=== PATIENT | female | born 1995 | race Hispanic/Latino ===

== ENCOUNTER 2020-03-02 11:08 | Inpatient (IN) | payer BC, OTHER ==
[2020-03-02] MEDS ORDERED: Butorphanol Tartrate 1 MG/ML VIAL SLOW IVP PRN (11:42)
[2020-03-02] MEDS ORDERED: Docusate 100 MG CAP PO PRN (11:42)
[2020-03-02] MEDS ORDERED: Promethazine HCl 25 MG/ML VIAL IM PRN ×2 (11:42→21:05)
[2020-03-02] MEDS ORDERED: Diphenoxylate HCl/Atropine Tablet PO PRN ×2 (11:42)
[2020-03-02] MEDS ORDERED: HYDROcodone/Acetaminophen 5/325 mg Tablet PO PRN ×4 (11:42→21:05)
[2020-03-02] MEDS ORDERED: Acetaminophen 500 MG TAB PO PRN (11:42)
[2020-03-02] MEDS ORDERED: Ibuprofen 800 MG TAB PO PRN (11:42)
[2020-03-02] MEDS ORDERED: Lidocaine 1% (PF) 30 ML VIAL SC PRN (11:42)
[2020-03-02] MEDS ORDERED: Ondansetron PF 4 MG/2 ML Vial IVP PRN ×2 (11:42→21:05)
[2020-03-02] MEDS ORDERED: Methylergonovine 0.2 MG/ML VIAL IM PRN ×2 (11:42→21:05)
[2020-03-02] MEDS ORDERED: Carboprost 250 MCG/ML AMP IM PRN (11:42)
[2020-03-02] MEDS ORDERED: Misoprostol 200 MCG TAB PR PRN (11:42)
[2020-03-02] MEDS ORDERED: hydrALAZINE 20 MG/ML VIAL SLOW IVP PRN ×2 (11:42→21:05)
[2020-03-02] MEDS ORDERED: NS / Oxytocin 40 units/1000ml 1,000 ML IV PRN (11:42)
[2020-03-02] MEDS ORDERED: NS w/ Oxytocin 10 units 500 ML IV SCH ×2 (11:45)
--- NOTE | 2020-03-02 11:49 | PDOC.LDHP ---
Labor and Delivery H&P Chief complaint: scheduled induction HPI: 24 y/o at 38 1/7 weeks, presents with borderline oligohydramniso, heavily calcified placenta, and asymmetric growth with 3 week growth delay of femur and abdomen noted on ultrasound today. WILTON 7cm, but overall fluid looks extremely low around the baby. Due date: 03/15/20 Grav: 2 Para: 1 Current complications: oligohydramnios Abnormal US findings: No Current medications: pre- vitamins Previous surgical history: other (tonisllectomy) Allergies/Adverse Reactions: Allergies Allergy/AdvReac Type Severity Reaction Status Date / Time No Known Allergies Allergy Unverified 12/30/19 10:03 Social history: none - Physical Exam Vital signs reviewed and normal: yes General: NAD, resting Heart: RRR Lungs: CTAB Abdomen: gravid Extremeties: no edema FHT: category 1 - Assessment L&D Assessment: medically indicated induction - Plan Plan: admit to L&D, cervical ripening
[2020-03-02 12:06] VITALS: BMI 24.7
[2020-03-02] MEDS: Lactated Ringer's 1,000 ML IV SCH (12:23)
[2020-03-02 12:36] LABS: Mean Corpuscular HGB CONC 34.1 g/dL (32.0-36.0); Mean Corpuscular Hemoglobin 34.5 pg (27.0-31.0); Mean Platelet Volume 10.3 fL (7.4-10.4); Platelet Count 145 thou/uL (130-400); RBC Distribution Width 12.2 % (11.5-14.5); Red Blood Cell (RBC) Count 3.77 mill/uL (4.20-5.40); White Blood Cell (WBC) Count 5.8 thou/uL (4.8-10.8)
[2020-03-02 13:08] LABS: Syphilis Antibody Nonreactive (Nonreactive); Syphilis Antibody Index 0.03 S/CO (<1.00 Non-Reactive)
[2020-03-02 13:09] LABS: HBSAg Index 0.12 S/CO (0-0.99); Hep B Surf Ag Non-Reactive S/CO (NonReactive)
[2020-03-02] MEDS ORDERED: NS / Oxytocin 40 units/1000ml 1,000 ML ONE (14:30)
[2020-03-02] MEDS ORDERED: Lidocaine 1% (PF) 30 ML VIAL ONE (14:30)
[2020-03-02] MEDS ORDERED: Lanolin Ointment 7 GM TUBE TOP PRN (21:05)
[2020-03-02] MEDS ORDERED: Misoprostol 200 MCG TAB VAG PRN (21:05)
[2020-03-02] MEDS ORDERED: Zolpidem Tartrate 5 MG TAB PO PRN (21:05)
[2020-03-02] MEDS ORDERED: Milk Of Magnesia 30 ML UDCUP PO PRN (21:05)
[2020-03-02] MEDS ORDERED: NS / Oxytocin 40 units/1000ml 1,000 ML IV SCH (21:05)
[2020-03-02] MEDS ORDERED: Preparation H Ointment 28 GM TUBE PR PRN (21:05)
[2020-03-02] MEDS ORDERED: diphenhydrAMINE 25 MG CAP PO PRN (21:05)
[2020-03-02] MEDS ORDERED: Benzocaine-Menthol 82.5 ML CAN TOP PRN (21:05)
[2020-03-02] MEDS ORDERED: Bisacodyl 10 MG SUPP PR PRN (21:05)
[2020-03-02] MEDS: Ibuprofen 800 MG TAB PO SCH (22:32)
[2020-03-02] MEDS: Docusate Calcium (SURFAK) 240 MG CAP PO SCH (22:32)
[2020-03-03] MEDS: Ibuprofen 800 MG TAB PO SCH ×3 (06:03→21:14)
[2020-03-03 06:04] LABS: Mean Corpuscular HGB CONC 34.8 g/dL (32.0-36.0); Platelet Count 121 thou/uL (130-400); RBC Distribution Width 12.2 % (11.5-14.5); Red Blood Cell (RBC) Count 3.15 mill/uL (4.20-5.40); White Blood Cell (WBC) Count 9.3 thou/uL (4.8-10.8)
[2020-03-03] MEDS ORDERED: Adacel (T-DAP) 0.5 ML SYRINGE IM ONE (09:00)
[2020-03-03] MEDS ORDERED: Varicella virus, LIVE 0.5 ML VIAL SC ONE (09:00)
[2020-03-03] MEDS ORDERED: Measles/Mumps/Rubella 10 MCG/0.5 ML VIAL SC ONE (09:00)
[2020-03-03] MEDS: Ferrous Sulfate 325 MG TAB PO SCH ×2 (09:20→17:56)
[2020-03-03] MEDS: Prenatal Vitamin 1 TAB PO SCH (09:23)
[2020-03-03] MEDS: Docusate Calcium (SURFAK) 240 MG CAP PO SCH ×2 (09:23→21:14)
[2020-03-03 12:11] LABS: SARS-CoV-2 MS2 Positive; SARS-CoV-2 N Gene Negative; SARS-CoV-2 S Gene Negative; SARS-CoV-2 by NAA Not Detected (NotDetected); SARS-CoV-2 orf1ab Negative
--- NOTE | 2020-03-03 18:43 | PDOC.PP ---
Post Progress Note Post Day #: 1 PO intake tolerated: yes Flatus: yes Ambulation: yes Vital Signs (12 hours) Temp Pulse Resp BP Pulse Ox 03/03/20 16:54 98.5 F 66 20 98/56 L 03/03/20 11:51 97.6 F 93 20 98/59 L 03/03/20 07:41 98.2 F 71 20 91/50 L 98 Weight Weight 153 lb - Physical Examination General: NAD Cardiovascular: no m/r/g Respiratory: clear to auscultation bilaterally, non-labored breathing Abdominal: + bowel sounds, lochia, no distention Extremities: negative homans (B) Neurological: no gross focal deficits Psychiatric: A&Ox3, normal affect Result Diagrams: 03/03/20 05:42 Additional Labs: Post Labs Hep Bs Antigen Non-Reactive S/CO (NonReactive) 03/02/20 12:25 Blood Type O NEGATIVE 03/02/20 12:25
[2020-03-04] MEDS: Ibuprofen 800 MG TAB PO SCH ×2 (05:46→09:45)
[2020-03-04 07:46] VITALS: BP 103/63; TEMP 98.3
[2020-03-04] MEDS: Lactated Ringer's 1,000 ML IV SCH (09:22)
[2020-03-04] MEDS: Docusate Calcium (SURFAK) 240 MG CAP PO SCH (09:43)
[2020-03-04] MEDS: Ferrous Sulfate 325 MG TAB PO SCH (09:43)
[2020-03-04] MEDS: Prenatal Vitamin 1 TAB PO SCH (09:43)
--- NOTE | 2020-03-04 09:47 | DN ---
DATE OF PROCEDURE: 03/02/2020 TIME OF DELIVERY: At 1857 hours central daylight savings time. PREOPERATIVE DIAGNOSIS: Intrauterine at 38 weeks and 1 day with medical induction of labor for oligohydramnios, asymmetric growth which seems to suggest head sparing. POSTOPERATIVE DIAGNOSIS: Intrauterine at 38 weeks and 1 day with medical induction of labor for oligohydramnios, asymmetric growth which seems to suggest head sparing as well as a tight double nuchal cord. FINDINGS: Viable female infant, weighing 2895 g or 6 pounds 6 ounces. Apgars of 9 and 9. QUANTITATIVE BLOOD LOSS: 200 mL. COMPLICATIONS: None. DESCRIPTION OF PROCEDURE: The patient presented to [facility] where she was admitted to the labor and delivery service. The patient underwent a normal and uneventful labor with normal cervical dilatation until she was found to be completely dilated. She was then allowed to push and was able to bring the baby down and delivered the baby in a vertex presentation without difficulties. Once the head delivered in occiput anterior position, the shoulders followed spontaneously along with the rest of the baby's body. Once out the baby's mouth and nose were bulb suctioned. The cord was clamped and cut and baby was handed to waiting attendants. Cord blood was collected. Gentle fundal massage was performed and the placenta delivered intact without problems. Hemostasis was assured. Quantitative blood loss was calculated. Inspection of the cervix, vaginal vault, and perineum did not reveal any lacerations needing suturing. Once again, hemostasis was within normal limits and the patient was allowed to recover in the labor and delivery room. Baby went to nursery. Job ID: [id number]
== END 2020-03-04 11:26 | disposition home or self-care (01) | DRG 807 ==
LOC: L&D-LIB 11:08 → 3SE 21:29
PROVIDERS: ADMIT Obstetrics & Gynecology; ATTEND Obstetrics & Gynecology
PROC: 10E0XZZ Delivery of Products of Conception, External Approach (ICD-10-PCS; principal; 2020-03-02)
PROC: 3E0P7VZ Introduction of Hormone into Female Reproductive, Via Natural or Artificial Opening (ICD-10-PCS; 2020-03-02)
PROC: 3E033VJ Introduction of Other Hormone into Peripheral Vein, Percutaneous Approach (ICD-10-PCS; 2020-03-02)
PROC: 3E0234Z Introduction of Serum, Toxoid and Vaccine into Muscle, Percutaneous Approach (ICD-10-PCS; 2020-03-03)
PROC: 3E0334Z Introduction of Serum, Toxoid and Vaccine into Peripheral Vein, Percutaneous Approach (ICD-10-PCS; 2020-03-03)
DX: O41.03X0 Oligohydramnios, third trimester, not applicable or unspecified (principal); Z37.0 Single live birth; Z3A.38 38 weeks gestation of pregnancy; Z20.828 Contact with and (suspected) exposure to other viral communicable diseases; O69.1XX0 Labor and delivery complicated by cord around neck, with compression, not applicable or unspecified; Z23 Encounter for immunization
CPT/HCPCS: 36415; 85027; 85461; 86780; 86850; 86870; 86900; 86901; 87340; 87635; 90384; 90715; 96372; J2001; J2590; U0003